=== PATIENT | male | born 1995 | race Caucasian/White ===

== ENCOUNTER 2020-12-19 21:16 | Emergency (ER) | payer BC ==
[~2020-12-19] VITALS: Ht 175.3 cm; Wt 113.4 kg
[2020-12-19] MEDS ORDERED: ZOFRAN ODT4 MG PO (22:16)
[2020-12-19 22:37] LABS: CALCIUM 8.1 mg/dL (8.5-10.1); CREATININE 1.3 mg/dL (0.6-1.3); POTASSIUM 3.4 mmol/L (3.5-5.1)
[2020-12-19 23:09] VITALS: BP 125/65
== END 2020-12-19 23:10 | disposition home or self-care (01) ==
LOC: M.ERS 21:16
PROVIDERS: Emergency Medicine
DX: F10.129 Alcohol abuse with intoxication, unspecified (principal); Y90.8 Blood alcohol level of 240 mg/100 ml or more; I10 Essential (primary) hypertension